=== PATIENT | female | born 1970 | race Two or more races ===

== ENCOUNTER 2021-09-02 11:15 | Inpatient (IN) | payer OTHER ==
[~2021-09-02] VITALS: Ht 165.1 cm; Wt 64.9 kg
[2021-09-02] MEDS ORDERED: CALAN PO (16:41)
[2021-09-02] MEDS ORDERED: CYMBALTA60 MG PO (16:41)
[2021-09-02] MEDS ORDERED: PLAQUENIL PO (16:41)
[2021-09-02] MEDS ORDERED: PREDINSONE PO (16:42)
[2021-09-03] MEDS ORDERED: HYDROXYCHLOROQ200 MG (16:20)
[2021-09-03] MEDS ORDERED: VERAPAMIL HCL80 MG (16:20)
[2021-09-03] MEDS ORDERED: RAYOS5 MG (16:20)
[2021-09-03] MEDS ORDERED: FENOFIBRATE48 MG (16:21)
[2021-09-03] MEDS ORDERED: OMEPRAZOLE20 MG (16:21)
[2021-09-03] MEDS ORDERED: ESZOPICLONE3 MG (16:21)
== END 2021-09-05 16:48 | disposition home or self-care (01) | DRG 743 ==
LOC: OB/GYN 09-03 07:06 → O/R 09-03 07:06 → SURH 09-03 10:15 → OB/GYN 09-04 00:54
PROVIDERS: ADMIT Specialist; ATTEND Specialist
PROC: 0UT60ZZ Resection of Left Fallopian Tube, Open Approach (ICD-10-PCS; 2021-09-03)
PROC: 0DNW0ZZ Release Peritoneum, Open Approach (ICD-10-PCS; 2021-09-03)
PROC: 0DNN0ZZ Release Sigmoid Colon, Open Approach (ICD-10-PCS; 2021-09-03)
PROC: 0TN70ZZ Release Left Ureter, Open Approach (ICD-10-PCS; 2021-09-03)
PROC: 0UDB8ZX Extraction of Endometrium, Via Natural or Artificial Opening Endoscopic, Diagnostic (ICD-10-PCS; 2021-09-03)
PROC: 0UT10ZZ Resection of Left Ovary, Open Approach (ICD-10-PCS; principal; 2021-09-03 10:15)
DX: N83.12 Corpus luteum cyst of left ovary (principal); N70.11 Chronic salpingitis; N83.312 Acquired atrophy of left ovary; N87.0 Mild cervical dysplasia; N99.4 Postprocedural pelvic peritoneal adhesions; N73.6 Female pelvic peritoneal adhesions (postinfective); Z53.31 Laparoscopic surgical procedure converted to open procedure